=== PATIENT | female | born 1995 | race Two or more races ===

== ENCOUNTER 2017-01-13 15:24 | Emergency (ER) | payer OTHER ==
[~2017-01-13] VITALS: Ht 162.6 cm; Wt 61.0 kg
[2017-01-13] MEDS ORDERED: KEFLEX500 MG PO (16:08)
[2017-01-13 16:29] VITALS: BP 123/72
== END 2017-01-13 16:30 | disposition home or self-care (01) ==
LOC: EME 15:24
DX: S90.861A Insect bite (nonvenomous), right foot, initial encounter (principal); L08.9 Local infection of the skin and subcutaneous tissue, unspecified; W57.XXXA Bitten or stung by nonvenomous insect and other nonvenomous arthropods, initial encounter
CPT/HCPCS: 99281; 99283